=== PATIENT | female | born 1985 | race Caucasian/White ===

== ENCOUNTER → 2025-02-01 15:55 | Outpatient (REF) | payer OTHER, SELFPAY ==
--- NOTE | 2025-02-01 15:55 | S_PTH ---
PATIENT: Caroline Pugh LOC: [facility] U#:[id number] AGE/SX: 39/F ROOM: RE02/01/[address]: Laxmi Lerma MD : 1985 BED: DIS: SPEC #: [id number] RECD: 02/02/25 07:33 STATUS: GUILLE REAzael #: [id number] AASHISH: 02/01/25 15:[address]: Laxmi Lerma DEPT: [facility] Surgical RECD BY: Rodney Gonzalez ENTERED: 02/02/25 07:33 SP TYPE: Surgical OTHR DR: UNKNOWN,DOCTOR Tissues: A - LESION Procedures: Hematoxylin and Eosin Stain Gross and Microscopic Level 4
== END ==
LOC: ANHLAB 15:55
PROVIDERS: Visit Provider Plastic Surgery
DX: D48.5 Neoplasm of uncertain behavior of skin (principal)
CPT/HCPCS: 88305